=== PATIENT | female | born 1995 | race African-American/Black ===

== ENCOUNTER 2019-04-14 08:15 | Emergency (ER) | payer MEDICAID ==
[~2019-04-14] VITALS: Ht 165.1 cm; Wt 55.1 kg
[2019-04-14 08:30] VITALS: BP 92/53
--- NOTE | 2019-04-14 08:49 | NUR ---
Pt provided urine sample to triage. Urine sample sent to lab.
[2019-04-14 09:06] LABS: BASOPHILS # (AUTO) 0.03 x10^3/uL (0-0.1); BASOPHILS % (AUTO) 0 % (0-1); EOSINOPHILS # (AUTO) 0.08 x10^3/uL (0-0.4); EOSINOPHILS % (AUTO) 1 % (1-7); LYMPHOCYTES # (AUTO) 1.16 x10^3/uL (1-3.4); LYMPHOCYTES % (AUTO) 12 % (22-44); MD NO; MEAN CORPUSCULAR HEMOGLOBIN 28.6 pg (27.0-34.8); MEAN CORPUSCULAR HGB CONC 32.1 g/dL (32.4-35.8); MEAN CORPUSCULAR VOLUME 89.1 fL (80-100); MEAN PLATELET VOLUME 8.3 fL (7.4-10.4); MONOCYTES # (AUTO) 0.73 x10^3/uL (0.2-0.8); MONOCYTES % (AUTO) 7 % (2-9); NEUTROPHILS # (AUTO) 7.91 x10^3/uL (1.8-6.8); NEUTROPHILS % (AUTO) 80 % (42-75); PLATELET COUNT 220 x10^3/uL (130-400); RED BLOOD COUNT 5.08 x10^6/uL (3.82-5.3); RED CELL DISTRIBUTION WIDTH 13.7 % (9.6-15.2)
[2019-04-14 09:14] LABS: CULTURE INDICATED? YES; MICROSCOPIC INDICATED
[2019-04-14 09:18] LABS: ALBUMIN 3.6 g/dL (3.4-5.0); ANION GAP 3 mmol/L (5-15); CALCIUM 8.4 mg/dL (8.5-10.1); CHLORIDE 106 mmol/L (98-107); CREATININE 0.81 mg/dL (0.55-1.02)
--- NOTE | 2019-04-14 09:26 | NUR ---
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
== END 2019-04-14 10:33 | disposition home or self-care (01) ==
LOC: ED 09:47
DX: N30.01 Acute cystitis with hematuria (principal)
CPT/HCPCS: 36415; 80048; 81001; 82040; 84703; 85025; 87077; 87086; 87186; 99283

== ENCOUNTER 2020-05-21 15:54 | Emergency (ER) | payer MEDICAID ==
[~2020-05-21] VITALS: Ht 165.1 cm; Wt 69.3 kg
[2020-05-21 15:59] VITALS: BP 107/68
== END 2020-05-21 17:31 | disposition home or self-care (01) ==
LOC: ED 17:18
DX: H60.12 Cellulitis of left external ear (principal)
CPT/HCPCS: 99283